=== PATIENT | female | born 1970 | race Caucasian/White ===

== ENCOUNTER 2017-07-18 11:51 | Day surgery (SDC) | payer BC ==
[2017-07-18] MEDS ORDERED: D5 LR 1000 ML 1,000 ML IV ONE (12:05)
[2017-07-18] MEDS ORDERED: DIPRIVAN VIAL 20 ML ONE (12:35)
[2017-07-18] MEDS ORDERED: DIPRIVAN VIAL 10 ML ONE (13:06)
[2017-07-18 14:33] VITALS: BP 113/65
== END 2017-07-18 13:35 | disposition home or self-care (01) ==
LOC: SURG1 11:51
PROVIDERS: ATTEND Internal Medicine Gastroenterology
PROC: 0DB88ZX Excision of Small Intestine, Via Natural or Artificial Opening Endoscopic, Diagnostic (ICD-10-PCS; principal; 2017-07-18 18:00)
PROC: 0DB68ZX Excision of Stomach, Via Natural or Artificial Opening Endoscopic, Diagnostic (ICD-10-PCS; principal; 2017-07-18 18:00)
PROC: 0DJ08ZZ Inspection of Upper Intestinal Tract, Via Natural or Artificial Opening Endoscopic (ICD-10-PCS; principal; 2017-07-18 18:00)
DX: R13.19 Other dysphagia (principal); R10.13 Epigastric pain; K21.9 Gastro-esophageal reflux disease without esophagitis; K29.60 Other gastritis without bleeding; K22.4 Dyskinesia of esophagus; K22.2 Esophageal obstruction
CPT/HCPCS: A4217; J3490; J7120

== ENCOUNTER 2020-05-30 06:24 | Inpatient (IN) ==
[2020-05-30] MEDS ORDERED: ANCEF VIAL 1 GRAM IVP ONE (06:25)
[2020-05-30] MEDS: D5 1/2 NS 1000 ML 1,000 ML IV SCH ×5 (06:25→22:29)
[2020-05-30] MEDS ORDERED: D5 1/2 NS 1000 ML 1,000 ML IV ONE (06:35)
[2020-05-30] MEDS ORDERED: ANCEF 1 GRAM IV PREMIX* 2 G/100 ML BAG IV ONE (06:36)
[2020-05-30] MEDS ORDERED: ProvayBLUE 0.5% ONE (06:44)
[2020-05-30] MEDS ORDERED: BETADINE SOLN ONE (06:44)
[2020-05-30 06:57] VITALS: BMI 44.3
[2020-05-30] MEDS ORDERED: DECADRON INJ ONE ×2 (07:00→07:20)
[2020-05-30] MEDS ORDERED: MORPHINE SULFATE INJ 2 MG INJ ONE (07:00)
[2020-05-30] MEDS ORDERED: NS 1000 ML 1,000 ML ONE (07:00)
[2020-05-30] MEDS ORDERED: FENTANYL INJ 100 mcg ONE (07:00)
[2020-05-30] MEDS ORDERED: XYLOCAINE 1 % (PLAIN) ONE (07:20)
[2020-05-30] MEDS ORDERED: ZOFRAN INJ 4 MG VIAL ONE (07:20)
[2020-05-30] MEDS ORDERED: VERSED ONE (07:20)
[2020-05-30] MEDS ORDERED: NORCURON INJ 10 MG VIAL ONE (07:20)
[2020-05-30] MEDS ORDERED: DIPRIVAN VIAL ONE (07:20)
[2020-05-30] MEDS ORDERED: QUELICIN (OR ANECTINE) ONE (07:20)
[2020-05-30] MEDS ORDERED: TORADOL 30 MG VIAL ONE (07:20)
[2020-05-30] MEDS ORDERED: NEOSTIGMINE INJ ONE (07:20)
[2020-05-30] MEDS ORDERED: ULTANE GAS IN ONE (07:20)
[2020-05-30] MEDS ORDERED: ROBINUL ONE (07:20)
[2020-05-30] MEDS ORDERED: ZOFRAN INJ 4 MG VIAL IVP PRN ×2 (10:11→11:07)
[2020-05-30] MEDS ORDERED: PHENERGAN INJ 25 MG IM PRN (10:11)
[2020-05-30] MEDS ORDERED: REGLAN INJ 10 MG VIAL IVP PRN (10:11)
[2020-05-30] MEDS ORDERED: DILAUDID INJ IVP PRN (10:11)
[2020-05-30] MEDS ORDERED: BENADRYL INJ 50 MG VIAL IVP PRN ×2 (10:11→11:07)
[2020-05-30] MEDS ORDERED: DILAUDID INJ ONE (10:31)
[2020-05-30] MEDS ORDERED: TORADOL 30 MG VIAL IVP PRN (11:07)
[2020-05-30] MEDS ORDERED: MORPHINE SULFATE PCA 30 MG IVP PRN (11:07)
[2020-05-30] MEDS ORDERED: NS IRRIGATION* 500 ML IR ONE (16:38)
[2020-05-31] MEDS: D5 1/2 NS 1000 ML 1,000 ML IV SCH ×3 (05:00→19:30)
[2020-05-31 05:56] LABS: BASOPHILS # (AUTO) 0.1 X10^3/uL (0.0-0.1); BASOPHILS % (AUTO) 0.3 % (0.2-1.0); EOSINOPHILS % (AUTO) 0.1 % (0.9-2.9); HEMOGLOBIN 11.5 g/dL (12.0-16.0); MONOCYTES # (AUTO) 1.9 x10^3/uL (0.3-0.8); RED CELL DISTRIBUTION WIDTH 13.6 % (11.6-16.5)
[2020-05-31 06:00] LABS: BLOOD UREA NITROGEN 9 mg/dL (7-18); CALCIUM 8.2 mg/dL (8.5-10.1); CARBON DIOXIDE 27.8 mmol/L (21-32); CHLORIDE 102 mmol/L (98-107); COR NA(FOR HYPERGLY) 137 mmol/L (136-145); CREATININE 1.02 mg/dL (0.55-1.02); SODIUM 136 mmol/L (136-145); eGFR NON BLACK RACES > 60 (>60)
[2020-05-31 06:01] LABS: HEMATOCRIT 34.4 % (36.0-47.0); LYMPHOCYTES # (AUTO) 2.7 X10^3/uL (1.3-2.9); MEAN CORPUSCULAR HEMOGLOBIN 29.8 pg (27.0-34.0); MEAN CORPUSCULAR HGB CONC 33.3 g/dL (33.0-35.0); MEAN CORPUSCULAR VOLUME 89.3 fL (80.0-100.0); MONOCYTES % (AUTO) 9.3 % (0.0-13.0); NEUTROPHILS # (AUTO) 16.2 x10^3/uL (2.2-4.8); NEUTROPHILS % (AUTO) 77.3 % (42.0-75.0); PLATELET COUNT 506 X10^3/uL (150.0-450.0); RED BLOOD COUNT 3.86 X10^6/uL (3.5-5.4)
[2020-05-31 06:20] LABS: PLATELET MORPHOLOGY COMMENT NORMAL (NORMAL)
[2020-05-31] MEDS ORDERED: MOTRIN TAB 800 MG PO PRN (07:15)
[2020-05-31] MEDS ORDERED: BACTROBAN TOPICAL OINT ONE (08:27)
[2020-05-31] MEDS: ESTRACE PO SCH (08:38)
[2020-05-31] MEDS: COLACE CAP 100 MG PO SCH ×2 (08:38→23:35)
[2020-05-31] MEDS: BACTROBAN TOPICAL OINT TOP SCH ×3 (08:40→22:00)
[2020-05-31] MEDS: PERCOCET TAB 5/325 MG PO PRN ×3 (11:20→20:15)
[2020-05-31] MEDS ORDERED: SYNTHROID 175 mcg TAB PO SCH (16:30)
[2020-06-01] MEDS: D5 1/2 NS 1000 ML 1,000 ML IV SCH (06:29)
[2020-06-01] MEDS: PERCOCET TAB 5/325 MG PO PRN (06:31)
[2020-06-01] MEDS: BACTROBAN TOPICAL OINT TOP SCH (06:31)
[2020-06-01 08:01] VITALS: BP 115/69
[2020-06-01] MEDS: ESTRACE PO SCH (08:35)
[2020-06-01] MEDS: COLACE CAP 100 MG PO SCH (08:35)
== END 2020-06-01 09:15 | disposition home or self-care (01) | DRG 743 ==
LOC: MED/SURG 06:24
PROVIDERS: ADMIT Specialist; ATTEND Specialist
DX: R10.2 Pelvic and perineal pain; N73.6 Female pelvic peritoneal adhesions (postinfective); N83.202 Unspecified ovarian cyst, left side